=== PATIENT | male | born 1950 | race Caucasian/White ===

== ENCOUNTER 2019-07-10 12:13 | Outpatient (CLI) | payer MEDICARE, OTHER ==
--- NOTE | 2019-07-10 13:30 | NM ---
I-131 administration HISTORY: Malignant neoplasm of the thyroid gland 148.3 mCi of I 131 was given orally at 1322 on 07/10/2019.
== END 2019-07-10 12:14 | disposition home or self-care (01) ==
LOC: NM 12:13
PROVIDERS: ATTEND Internal Medicine Endocrinology, Diabetes & Metabolism
DX: C73 Malignant neoplasm of thyroid gland (principal)
CPT/HCPCS: 79005; A9517 ×2

== ENCOUNTER 2019-07-20 12:09 | Outpatient (CLI) | payer MEDICARE, OTHER ==
--- NOTE | 2019-07-20 15:35 | NM ---
POST RADIOIODINE ABLATION WHOLE BODY SCAN: Date; 07/20/2019 HISTORY: 68-year-old male with malignant neoplasm of thyroid gland, status post near complete thyroidectomy an d radioiodine ablation therapy with 148.3 mCi Iodine-131 administered orally on 07/10/2019. FINDINGS: There is physiologic activity in the nose, mouth, and salivary glands, and the urinary bladder/rectum . There are multiple foci of increased uptake in the neck consistent with lymph bernadette metastasis. No ot her abnormal areas of tracer localization seen to suggest distant metastatic disease. IMPRESSION: 1. 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 2. No evidence of distant metastasis. POS: OFF
== END 2019-07-20 12:10 | disposition home or self-care (01) ==
LOC: NM 12:09
PROVIDERS: ATTEND Internal Medicine Endocrinology, Diabetes & Metabolism
DX: C73 Malignant neoplasm of thyroid gland (principal)
CPT/HCPCS: 78018

== ENCOUNTER 2020-01-13 12:18 | Outpatient (CLI) | payer MEDICARE, OTHER ==
--- NOTE | 2020-01-13 13:34 | ULT ---
THYROID ULTRASOUND: 01/13/20 COMPARISON: None. HISTORY: Hypothyroidism, prior thyroid ablation. TECHNIQUE: Multiplanar chakraborty scale sonographic imaging of the thyroid bed obtained. FINDINGS: Provided imaging of the thyroid bed in the midline right and left paracentral regions demonstrates no residual thyroid tissue. IMPRESSION: Focused ultrasound of the thyroid bed demonstrates no residual thyroid tissue. POS: [facility]
== END 2020-01-13 12:19 | disposition home or self-care (01) ==
LOC: BICULT 12:18
PROVIDERS: ATTEND Internal Medicine Endocrinology, Diabetes & Metabolism
DX: C73 Malignant neoplasm of thyroid gland (principal); E03.9 Hypothyroidism, unspecified
CPT/HCPCS: 76536